=== PATIENT | male | born 2000 | race Caucasian/White ===

== ENCOUNTER 2020-07-01 02:39 | Observation (INO) | payer BC, OTHER, SELFPAY ==
[2020-07-01] MEDS ORDERED: Morphine 4 MG/ML VIAL ONE (03:09)
[2020-07-01] MEDS ORDERED: Ondansetron PF 4 MG/2 ML Vial ONE (03:09)
[2020-07-01 03:17] LABS: #Lymphocytes 1.4 thou/uL (1.20-3.40); #Monocytes 0.9 thou/uL (0.11-0.59); #Neutrophils 11.1 thou/uL (1.40-6.50); %Basophils 0.3 % (0.0-1.0); %Eosinophils 0.3 % (0.0-10.0); %Lymphocytes 10.3 % (28.0-48.0); %Monocytes 6.7 % (0.0-4.0); %Neutrophils 82.4 % (31.0-61.0); Mean Corpuscular HGB CONC 35.1 g/dL (32.0-36.0); Mean Corpuscular Hemoglobin 31.1 pg (25.0-35.0); Mean Corpuscular Volume 88.8 fL (78.0-98.0); Mean Platelet Volume 8.7 fL (7.4-10.4); Platelet Count 220 thou/uL (130-400); RBC Distribution Width 11.6 % (11.5-14.5); Red Blood Cell (RBC) Count 4.82 mill/uL (4.00-5.20); White Blood Cell (WBC) Count 13.4 thou/uL (4.8-10.8)
[2020-07-01 03:35] LABS: ALT (SGPT) 17 U/L (8-55); AST (SGOT) 16 U/L (5-34); Albumin 4.2 g/dL (3.5-5.0); Alkaline Phosphatase 85 U/L (50-130); Anion Gap 16 mmol/L (10-20); BUN (Urea Nitrogen) 9 mg/dL (8.9-20.6); Bilirubin, Total 0.7 mg/dL (0.2-1.2); Calc. Creatinine Clearance 0 mL/min (70-130); Calcium 9.2 mg/dL (7.8-10.44); Carbon Dioxide 22 mmol/L (22-29); Chloride 105 mmol/L (98-107); Estimated GFR-MDRD Greater than 90; Globulin 2.7 g/dL (2.4-3.5); Glucose 120 mg/dL (70-105); Potassium 3.9 mmol/L (3.5-5.1); Protein, Total 6.9 g/dL (6.0-8.3); Sodium 139 mmol/L (136-145)
--- NOTE | 2020-07-01 04:45 | HP ---
HISTORY OF PRESENT ILLNESS: Luis Manuel Perez a 20-year-old male, attending college, since Saturday he experienced lower abdominal pain, nausea, and vomiting. Last bowel movement was 2 days ago. He was seen in [place]. CAT scan of the abdomen and pelvis obtained suggesting on some images an internal hernia with bowel dilatation. NG tube is in place in this facility. The patient has not had any prior abdominal operations. Sodium 139, potassium 3.6, chloride 100, CO2 of 22, BUN 10, creatinine 1. White count 14, hemoglobin 17. Urinalysis unremarkable. ALLERGIES: NONE. TOBACCO: Socially. ALCOHOL: Socially. MEDICATIONS: None. PAST SURGICAL HISTORY: Noncontributory. REVIEW OF SYSTEMS: Ten-point noncontributory. PHYSICAL EXAMINATION: VITAL SIGNS: 84, 140/88, respiratory rate 18. HEAD, EARS, EYES, NOSE AND THROAT: Unremarkable. LUNGS: Clear to auscultation. CARDIAC: Regular rate and rhythm without murmur or gallop. ABDOMEN: Tender with guarding lower abdomen, not distended. EXTREMITIES: Unremarkable. ASSESSMENT: Abdominal pain. Radiology suggested of internal hernia. PLAN: laparotomy, possible bowel resection as indicated. Job ID: [id number]
[2020-07-01] MEDS ORDERED: Piperacillin/Tazobactam 3.375 GM in Sodium Chloride 0.9% 100 ML IVPB SCH (06:00)
[2020-07-01] MEDS ORDERED: Ketorolac Tromethamine 30 MG/ML VIAL IVP PRN (06:03)
[2020-07-01] MEDS ORDERED: Morphine 4 MG/ML VIAL SLOW IVP PRN ×2 (06:07)
[2020-07-01] MEDS ORDERED: Ketorolac Tromethamine 30 MG/ML VIAL IVP SCH (06:15)
[2020-07-01] MEDS ORDERED: Lactated Ringer's 1,000 ML IV SCH (06:15)
[2020-07-01] MEDS ORDERED: Ketorolac Tromethamine 30 MG/ML VIAL ONE (06:28)
[2020-07-01] MEDS ORDERED: Piperacillin/Tazobactam 3.375 GM VIAL ONE (06:28)
[2020-07-01] MEDS ORDERED: Pantoprazole 40 MG VIAL IVP SCH (06:30)
[2020-07-01] MEDS ORDERED: Pantoprazole 40 MG VIAL ONE (07:33)
--- NOTE | 2020-07-01 08:14 | RAD ---
SUPINE ABDOMEN: Date: 07/01/2020 INDICATION: Assess NG tube placement. FINDINGS/IMPRESSION: Single view image of lower left chest and upper left abdomen. A NG tube passes through the EG junction and has tip overlying the left upper quadrant in the region of the gastric fundus. There are gas-filled dilated loops of small bowel which are only partially imaged. POS: OFF
[2020-07-01 09:11] LABS: SARS-CoV-2 NAA Rapid Test Not Detected (NotDetected)
[2020-07-01] MEDS ORDERED: Bupivacaine HCl 0.5%/Epinephrine 1:200,000/PF 30 ml Vial ONE ×3 (09:43→10:44)
[2020-07-01] MEDS ORDERED: Fentanyl 100 MCG/2 ML VIAL ONE ×2 (09:44→10:09)
[2020-07-01] MEDS ORDERED: Dexamethasone 4 mg/ml Vial ONE (10:09)
[2020-07-01] MEDS ORDERED: Midazolam HCl 2 mg/2 ml Vial ONE (10:09)
[2020-07-01] MEDS ORDERED: Lidocaine 1% (PF) 30 ML VIAL ONE (10:09)
[2020-07-01] MEDS ORDERED: Lidocaine 1% PF 5 ML VIAL ONE (10:43)
[2020-07-01] MEDS ORDERED: PROPOFOL 200 MG/20 ML VIAL ONE (10:43)
[2020-07-01] MEDS ORDERED: Succinylcholine Chloride 20 MG/ML 10 ml SYRINGE FS ONE (10:43)
[2020-07-01] MEDS ORDERED: Dexamethasone 20 MG/5 ML VIAL ONE (10:43)
[2020-07-01] MEDS ORDERED: Rocuronium Bromide 10 MG/ML (10ML VIAL) ONE (10:43)
[2020-07-01] MEDS ORDERED: Meperidine HCl/PF 25 MG/ML VIAL ONE (11:27)
--- NOTE | 2020-07-01 12:30 | OP ---
DATE OF PROCEDURE: 07/01/2020 PREOPERATIVE DIAGNOSIS: Small-bowel obstruction in a patient without prior history of abdominal surgery. POSTOPERATIVE DIAGNOSIS: Small bowel obstruction due to a Meckel diverticulum fixated to the anterior abdominal wall. ANESTHESIA: General, TAP block, local 0.5% Marcaine with epinephrine 20 mL. PROCEDURES PERFORMED: Diagnostic laparoscopy, laparoscopic adhesiolysis, and laparoscopic Meckel's diverticulectomy. FINDINGS: The patient had a Meckel diverticulum of the small bowel, adherent to the anterior abdominal wall, causing a fixated point for an internal hernia and a bowel obstruction. DESCRIPTION OF PROCEDURE: The patient was taken to the operating room, where under general anesthesia and TAP block, abdomen was prepared with ChloraPrep and draped in routine fashion. Parrish catheter placed at the beginning of the procedure and removed at the end. Right lateral subcostal incision made, pneumoperitoneum to 15 mmHg was obtained with a Veress needle, replaced with a 5 port, video laparoscope inserted. Left lower quadrant lateral incision made and a 5 port placed, left mid abdominal lateral incision made and a 5 port placed initially, replaced with a 12 port later. Laparoscopic evaluation revealed a Meckel diverticulum extending from the terminal ileum to the anterior abdominal wall, causing point of torsion and obstruction. The Meckel diverticulum was taken down from the anterior abdominal wall with the LigaSure. The stalk of the Meckel diverticulum was very soft, where the tip was very globular, probably about 5 or 6 cm in diameter. The stalk was identified down towards the small bowel, where it was stapled with Endo-ODESSA blue load stapler. Meckel diverticulum was placed in endobag and removed. Staple line was hemostatic. Proximal small bowel was dilated, distal small bowel decompressed. Good hemostasis noted. Some obstructive ascites fluid evacuated. Good hemostasis noted. I did look at the proximal small bowel as much as I could, but it was dilated. I did not want to handle it too much and cause injury as I had definitely determined the point of obstruction. Irrigant and pneumoperitoneum evacuated. All instruments removed and 12 port fascia was approximated with 0 Vicryl, UR needle. All skin incisions were approximated with subdermal 4-0 Monocryl and [place] glue applied. The patient tolerated the procedure well. Job ID: [id number]
== END 2020-07-01 14:15 | disposition home or self-care (01) ==
LOC: ERS 02:39 → ERHOLD 03:25 → INTOOBSV 03:25
PROVIDERS: ADMIT Specialist; ATTEND Specialist
PROC: 0DB84ZZ Excision of Small Intestine, Percutaneous Endoscopic Approach (ICD-10-PCS; principal; 2020-07-01)
PROC: 3E0T3BZ Introduction of Anesthetic Agent into Peripheral Nerves and Plexi, Percutaneous Approach (ICD-10-PCS; 2020-07-01)
DX: Q43.0 Meckel's diverticulum (displaced) (hypertrophic) (principal); K56.699 Other intestinal obstruction unspecified as to partial versus complete obstruction; K46.0 Unspecified abdominal hernia with obstruction, without gangrene; R18.8 Other ascites; G89.18 Other acute postprocedural pain; F12.10 Cannabis abuse, uncomplicated; Z20.828 Contact with and (suspected) exposure to other viral communicable diseases
CPT/HCPCS: 36415; 74018; 80053; 83605; 85025; 88307; 96361; 96374; 96375; C9113; J1100; J1885; J2001; J2175; J2250; J2270; J2405; J2543; J2704; J3010; J3490; U0002